=== PATIENT | female | born 1965 | race Caucasian/White ===

== ENCOUNTER 2024-10-06 13:57 | Outpatient (CLI) | payer BC | END 2024-10-06 13:58 | disposition home or self-care (01) | LOC: CSHLAB 13:57 | PROVIDERS: ATTEND Obstetrics & Gynecology | DX: Z01.812 Encounter for preprocedural laboratory examination (principal); D25.9 Leiomyoma of uterus, unspecified; N85.7 Hematometra; R10.2 Pelvic and perineal pain | CPT/HCPCS: 86850; 86900; 86901 ==

== ENCOUNTER → 2024-10-08 | Day surgery (SDC) | payer BC ==
[2024-10-06 14:08] VITALS: BMI 20.9
[~2024-10-08] MED LIST: Bupivacaine HCl 0.5%/Epinephrine 1:200,000/PF 30 ml Vial ONE; CEFAZOLIN 2 GM VIAL ONE; Famotidine/PF 20 mg/2ml Vial ONE; Gabapentin 300 MG CAP ONE; Glycopyrrolate 0.2 MG/ML 5 ML SYRINGE ONE; HYDROcodone/Acetaminophen 5/325 mg Tablet ONE; Lidocaine 1% PF 5 ML VIAL ONE; Ondansetron PF 4 MG/2 ML Vial ONE; PROPOFOL 40 ML ONE; Rocuronium Bromide 10 MG/ML (10ML VIAL) ONE; SUGAMMADEX SODIUM 200 MG/2 ML VIAL ONE; Scopolamine 1 mg/72 hour Patch ONE; Tranexamic Acid 1,000 MG/10 ML VIAL ONE
== END ==
LOC: CSHSDC 08:04
PROVIDERS: ATTEND Obstetrics & Gynecology
PROC: 0UT94ZZ Resection of Uterus, Percutaneous Endoscopic Approach (ICD-10-PCS; principal; 2024-10-08)
PROC: 0UT74ZZ Resection of Bilateral Fallopian Tubes, Percutaneous Endoscopic Approach (ICD-10-PCS; principal; 2024-10-08)
PROC: 0DTJ4ZZ Resection of Appendix, Percutaneous Endoscopic Approach (ICD-10-PCS; principal; 2024-10-08)
PROC: 0UT24ZZ Resection of Bilateral Ovaries, Percutaneous Endoscopic Approach (ICD-10-PCS; principal; 2024-10-08)
DX: D25.1 Intramural leiomyoma of uterus (principal); N80.03 Adenomyosis of the uterus; N88.8 Other specified noninflammatory disorders of cervix uteri; K35.80 Unspecified acute appendicitis; K36 Other appendicitis; E03.9 Hypothyroidism, unspecified; Z98.51 Tubal ligation status; Z98.890 Other specified postprocedural states; Z88.5 Allergy status to narcotic agent; Z79.890 Hormone replacement therapy
CPT/HCPCS: 36415; 86850; 86900; 86901; 88304; 88307; A4649; J1100; J1308; J2405; J2704; J3010; S2900